=== PATIENT | male | born 1995 | race Caucasian/White ===

== ENCOUNTER 2017-12-17 13:00 | Inpatient (IN) | payer BC ==
[~2017-12-17] VITALS: Ht 182.9 cm; Wt 50.4 kg
[~2017-12-17 13:00] MED LIST: NOHOMEMEDS
[2017-12-17 13:48] LABS: PLATELET COUNT 604 K/uL (156-360)
[2017-12-17 13:54] LABS: HEMATOCRIT 36.6 % (38.0-50.0); HEMOGLOBIN 12.1 G/DL (12.5-16.6); MCH 25.7 PG (29.0-34.0); MCHC 33.1 G/DL (30.0-36.0); MCV 77.7 FL (86-99); RBC DIS.WIDTH-CV 15.6 % (11.8-14.6); RED BLOOD COUNT 4.71 M/uL (4.00-5.50); WHITE BLOOD COUNT 29.9 K/uL (4.1-10.2)
[2017-12-17 13:57] LABS: ALBUMIN 3.4 g/dL (3.2-4.8); CHLORIDE 97 mEq/L (99-109); POTASSIUM 4.8 mEq/L (3.7-5.4); SODIUM 133 mEq/L (136-147)
[2017-12-17 14:00] LABS: GLUCOSE 91 mg/dL (70-99); TOTAL PROTEIN 6.9 g/dL (6.4-8.3)
[2017-12-17 14:02] LABS: TOTAL BILIRUBIN 0.7 mg/dL (0.0-1.0)
[2017-12-17 14:03] LABS: ALKALINE PHOSPHATASE 149 IU/L (3-129); CREATININE 0.9 mg/dL (0.6-1.3); GFR ESTIMATE (CALCULATED) > 59 mL/min/ (58.99-99999)
[2017-12-17 14:04] LABS: UREA NITROGEN (BUN) 13 mg/dL (9-23)
[2017-12-17 14:05] LABS: AST (GOT) 13 IU/L (2-34)
[2017-12-17 14:06] LABS: ALT (GPT) 17 IU/L (3-49)
[2017-12-17] MEDS ORDERED: TYLENOL EXTRA500 MG PO (16:51)
[2017-12-17] MEDS ORDERED: ENTOCORT EC3 MG PO (16:51)
[2017-12-17] MEDS ORDERED: STUDY DRUG PO (16:51)
[2017-12-17 17:58] LABS: C-REACTIVE PROTEIN < 1.0 MG/L (0-10)
[2017-12-17 20:10] VITALS: BP 98/63
[2017-12-18 00:15] VITALS: BP 104/55
[2017-12-18 06:13] LABS: BASOPHIL (%) 0.1 % (0-1); EOSINOPHIL (%) 0 % (0-5); HEMOGLOBIN 10.4 G/DL (12.5-16.6); IMMATURE GRANULOCYTE (%) 0.9 % (0.0-0.7); LYMPHOCYTE (%) 2.4 % (15-42); LYMPHOCYTE COUNT 0.6 K/uL (1.0-2.8); MCH 25.1 PG (29.0-34.0); MCHC 31.5 G/DL (30.0-36.0); MCV 79.5 FL (86-99); MONOCYTE (%) 3.1 % (3-12); MONOCYTE COUNT 0.8 K/uL (0-0.8); NEUTROPHIL (%) 93.5 % (45-76); NEUTROPHIL COUNT 23.4 K/uL (1.8-6.4); PLATELET COUNT 543 K/uL (156-360); RBC DIS.WIDTH-CV 15.8 % (11.8-14.6); RBC DIS.WIDTH-SD 45.5 % (39-53); RED BLOOD COUNT 4.15 M/uL (4.00-5.50)
[2017-12-18 07:11] LABS: CHLORIDE 103 MEQ/L (99-109); CREATININE 0.7 MG/DL (0.6-1.3); GFR ESTIMATE (CALCULATED) > 59 mL/min/ (58.99-99999); GLUCOSE 104 mg/dL (70-99); POTASSIUM 4.6 MEQ/L (3.7-5.4); SODIUM 137 MEQ/L (136-147); UREA NITROGEN (BUN) 8 mg/dL (9-23)
[2017-12-18 08:21] VITALS: BP 97/59
[2017-12-18 13:38] LABS: C DIFF TOXIN NEGATIVE (NEGATIVE)
[2017-12-18 22:55] VITALS: BP 118/57
[2017-12-19 01:20] VITALS: BP 107/64
[2017-12-19 06:11] LABS: BASOPHIL (%) 0.1 % (0-1); EOSINOPHIL (%) 0 % (0-5); HEMOGLOBIN 9.6 G/DL (12.5-16.6); IMMATURE GRANULOCYTE (%) 1.1 % (0.0-0.7); LYMPHOCYTE (%) 1.8 % (15-42); LYMPHOCYTE COUNT 0.5 K/uL (1.0-2.8); MCH 25.1 PG (29.0-34.0); MCV 78.5 FL (86-99); MONOCYTE (%) 4.2 % (3-12); MONOCYTE COUNT 1.2 K/uL (0-0.8); NEUTROPHIL (%) 92.8 % (45-76); NEUTROPHIL COUNT 25.1 K/uL (1.8-6.4); PLATELET COUNT 570 K/uL (156-360); RBC DIS.WIDTH-CV 15.7 % (11.8-14.6); RBC DIS.WIDTH-SD 45.1 % (39-53); RED BLOOD COUNT 3.82 M/uL (4.00-5.50); WHITE BLOOD COUNT 27.1 K/uL (4.1-10.2)
[2017-12-19 06:39] LABS: ALBUMIN 2.3 G/DL (3.2-4.8); ALKALINE PHOSPHATASE 83 IU/L (3-129); ALT (GPT) 7 IU/L (3-49); AST (GOT) 8 IU/L (2-34); CHLORIDE 107 MEQ/L (99-109); CREATININE 0.7 MG/DL (0.6-1.3); GFR ESTIMATE (CALCULATED) > 59 mL/min/ (58.99-99999); GLUCOSE 106 mg/dL (70-99); POTASSIUM 4.5 MEQ/L (3.7-5.4); SODIUM 139 MEQ/L (136-147); TOTAL BILIRUBIN 0.4 MG/DL (0.0-1.0); TOTAL PROTEIN 4.8 G/DL (6.4-8.3); UREA NITROGEN (BUN) 5 mg/dL (9-23)
[2017-12-19 07:28] VITALS: BP 114/66
[2017-12-19 15:40] VITALS: BP 125/69
[2017-12-20 00:41] VITALS: BP 112/63
[2017-12-20 06:22] LABS: HEMATOCRIT 28.5 % (38.0-50.0); HEMOGLOBIN 9.2 G/DL (12.5-16.6); MCH 25.1 PG (29.0-34.0); MCHC 32.3 G/DL (30.0-36.0); MCV 77.9 FL (86-99); PLATELET COUNT 562 K/uL (156-360); RBC DIS.WIDTH-CV 15.7 % (11.8-14.6); RED BLOOD COUNT 3.66 M/uL (4.00-5.50); WHITE BLOOD COUNT 20.9 K/uL (4.1-10.2)
[2017-12-20 08:36] VITALS: BP 113/67
[2017-12-20 14:07] LABS: APPEARANCE CLEAR ((CLEAR)); BILIRUBIN NEGATIVE; BLOOD NEGATIVE; COLOR YELLOW ((YELLOW)); GLUCOSE (STRIP) NEGATIVE; KETONES NEGATIVE; NITRITE NEGATIVE; PROTEIN (STRIP) NEGATIVE; SPECIFIC GRAVITY 1.019 (1.000-1.030); UROBILINOGEN 0.2 MG/DL (0.2-1.0)
[2017-12-20 14:12] LABS: LEUKOCYTES NEGATIVE
[2017-12-20 15:30] VITALS: BP 112/65; BP 119/76
[2017-12-20 23:45] VITALS: BP 110/63
[2017-12-21 05:57] LABS: HEMATOCRIT 29.7 % (38.0-50.0); HEMOGLOBIN 9.5 G/DL (12.5-16.6); MCV 78.2 FL (86-99); PLATELET COUNT 592 K/uL (156-360); RBC DIS.WIDTH-CV 15.9 % (11.8-14.6); RBC DIS.WIDTH-SD 45.5 % (39-53)
[2017-12-21 06:22] LABS: ALBUMIN 2.1 G/DL (3.2-4.8); CHLORIDE 107 MEQ/L (99-109); CREATININE 0.6 MG/DL (0.6-1.3); GFR ESTIMATE (CALCULATED) > 59 mL/min/ (58.99-99999); GLUCOSE 116 mg/dL (70-99); PHOSPHORUS 2.8 mg/dL (2.5-4.9); POTASSIUM 3.8 MEQ/L (3.7-5.4); SODIUM 143 MEQ/L (136-147); UREA NITROGEN (BUN) 6 mg/dL (9-23)
[2017-12-21 07:20] VITALS: BP 117/68
[2017-12-21 09:43] VITALS: BP 117/68
[2017-12-21] MEDS ORDERED: NICOTINE PATCH1 EAC1 TD (11:14)
[2017-12-21] MEDS ORDERED: CIPRO500 MG PO (11:16)
[2017-12-21] MEDS ORDERED: FLAGYL500 MG PO (11:17)
[2017-12-21] MEDS ORDERED: PREDNISONE10 MG PO (11:25)
== END 2017-12-21 15:53 | disposition home or self-care (01) | DRG 872 ==
LOC: EME 13:00 → 5EAST 18:21 → EDOF 18:21 → ENRESERV 18:35 → 5EAST 19:57
PROVIDERS: Hospitalist; Internal Medicine; Internal Medicine Gastroenterology; Physician Assistant
DX: A41.9 Sepsis, unspecified organism (principal); F17.210 Nicotine dependence, cigarettes, uncomplicated; R59.1 Generalized enlarged lymph nodes; E86.0 Dehydration; K50.80 Crohn's disease of both small and large intestine without complications; D72.829 Elevated white blood cell count, unspecified; T38.0X5A Adverse effect of glucocorticoids and synthetic analogues, initial encounter; Z68.1 Body mass index [BMI] 19.9 or less, adult; D64.9 Anemia, unspecified
CPT/HCPCS: 71046; 74177; 80048; 80053; 80069; 81003; 83605; 85025; 85027; 86140; 87040; 87493; 99281; 99285; J0744; J1650; J1720; J1956; J2930; J3010; J7030; S0028; S0030